=== PATIENT | female | born 1965 | race Caucasian/White ===

== ENCOUNTER 2019-09-09 06:29 | Day surgery (SDC) | payer BC ==
[~2019-09-09 06:29] MED LIST: Lactated Ringers 1,000 ML IV ONE; MEFOXIN 2 GM PREMIX** 2 GM/50 ML ML IV ONE
[2019-09-09] MEDS ORDERED: Lactated Ringers 1,000 ML IV SCH (06:30)
[2019-09-09] MEDS ORDERED: Sensorcaine 0.25% 10 ML ONE (07:13)
[2019-09-09] MEDS ORDERED: Lactated Ringers 1,000 ML IV ONE (07:14)
--- NOTE | 2019-09-09 07:48 | HP ---
DATE OF SURGERY: 09/09/2019 ANTICIPATED PROCEDURE: Laparoscopic cholecystectomy possible open. HISTORY OF PRESENT ILLNESS: The patient has chronic cholecystitis, multiple attacks, right upper quadrant pain. She presents for cholecystectomy. PAST SURGICAL HISTORY: She has had a brachial cleft cyst, bladder tack. PAST MEDICAL HISTORY: ALLERGIES: VICODIN. MEDICATIONS: Metformin. SOCIAL HISTORY: Negative. FAMILY HISTORY: Negative. REVIEW OF SYSTEMS: Diabetes. Celiac disease. PHYSICAL EXAMINATION: VITAL SIGNS: Normal. CHEST: Clear. COR: Regular. ABDOMEN: Satisfactory. IMPRESSION: Depressed gallbladder ejection fraction, dyskinesia and cholecystitis. PLAN: Laparoscopic cholecystectomy.
[2019-09-09] MEDS ORDERED: Versed 2 MG/2 ML Injection ONE (08:11)
[2019-09-09] MEDS ORDERED: DIPRIVAN 200 MG/20 ML IV ONE (08:11)
[2019-09-09] MEDS ORDERED: SUBLIMAZE 250 MCG/5 ML ONE (08:11)
[2019-09-09] MEDS ORDERED: Zemuron 100 MG/10 ML ONE (08:11)
[2019-09-09] MEDS ORDERED: BRIDION 200MG/2ML IV ONE (10:53)
[2019-09-09] MEDS ORDERED: MORPHINE SULFATE 10 MG/ML ONE (11:32)
[2019-09-09 13:17] VITALS: BP 146/87; PULSE 64; O2SAT 98
--- NOTE | 2019-09-09 15:31 | OP ---
SURGERY DATE/TIME: 09/09/2019 1036 PREOPERATIVE DIAGNOSIS: Gallbladder dyskinesia. POSTOPERATIVE DIAGNOSIS: Gallbladder dyskinesia. PROCEDURE: Laparoscopic cholecystectomy. SURGEON: Dr. Bowen. ANESTHESIA: General endotracheal tube. COMPLICATIONS: None. CONDITION: Stable. INDICATIONS: A patient with upper abdominal pain, ultrasound negative, HIDA scan positive. Clinically she certainly has cholecystitis. DESCRIPTION OF PROCEDURE AND FINDINGS: She is taken to surgery. General anesthetic, routine prep and drape. Veress needle inserted. Opening pressure of 1, insufflating pressure 14. Four - 5's. Good visualization. There was quite a bit of scarring of her cystic duct area this was taken down. Cystic duct triply clipped. Cystic artery triply clipped. Gallbladder rolled out of gallbladder fossa. The gallbladder delivered through epigastric port with small amount of widening. Hole closure device used with 0 Vicryl. Field was dry. CO2 exsufflated. Skin closed with 4-0 Vicryl and Steri-Strips. The patient tolerated the procedure satisfactorily.
== END 2019-09-09 13:15 | disposition home or self-care (01) ==
LOC: SDC 06:29
PROVIDERS: ATTEND Surgery
DX: K82.8 Other specified diseases of gallbladder (principal); E11.9 Type 2 diabetes mellitus without complications; Z79.84 Long term (current) use of oral hypoglycemic drugs
CPT/HCPCS: 82962; 88304; J0694; J2250; J2270; J2704; J3010

== ENCOUNTER 2024-03-21 15:15 | Emergency (ER) | payer BC ==
[2024-03-21 16:29] VITALS: TEMP 98.2; O2SAT 99
[2024-03-21] MEDS: XYLOCAINE 1% HCL 20 ML MDV IJ ONE (16:31)
[2024-03-21] MEDS ORDERED: XYLOCAINE 1% HCL 20 ML MDV ONE (16:32)
--- NOTE | 2024-03-21 16:44 | ERPHSYRPT ---
- History of Present Illness Time Seen by Provider: 03/21/24 15:54 Source: patient Exam Limitations: no limitations Patient Subjective Stated Complaint: C/O laceration to top of right foot. States she dropped some glass sauce containers on top of her foot at home about an hour prior to coming into the ER. Triage Nursing Assessment: Patient with a 2cm X 0.3cm laceration to the top of her right foot. She is alert and oriented. Ambulating without difficulties. Physician History: 58-year-old female presented in the ER with complaint of right foot dorsum laceration after she accidentally dropped to sauce bottle which possibly broke and has a laceration prior to arrival. There was bleeding initially but stopped with applying pressure. She is complaining of minimal pain. No difficulty ambulation. No distal foot/toes numbness Allergies/Adverse Reactions: hydrocodone bitartrate [From Vicodin] Allergy (Mild, Verified 03/21/24 16:09) rash, itching Home Medications: Atorvastatin Calcium 10 mg PO HS 09/01/19 [History] Metformin HCl 500 mg [Glucophage 500 MG] 1,000 mg PO BIDWM 09/01/19 [History] Multivitamin [Multivitamins] 1 each PO DAILY 09/09/19 [History] Hx Tetanus, Diphtheria Vaccination/Date Given: (Needs a tetanus) Hx Influenza Vaccination/Date Given: No Hx Pneumococcal Vaccination/Date Given: No Travel Risk - International Travel Have you traveled outside of the country in past 3 weeks: No - Emerging Infectious Disease Are you exhibiting symptoms associated with any current EIDs: No - Review of Systems Constitutional: No Symptoms Respiratory: No Symptoms Cardiac: No Symptoms Abdominal/Gastrointestinal: No Symptoms Musculoskeletal: Injury Skin: Skin Lesions Neurological: No Symptoms Hematologic/Lymphatic: No Symptoms Immunological/Allergic: No Symptoms - Past Medical History Pertinent Past Medical History: Yes Neurological History: No Pertinent History ENT History: No Pertinent History Cardiac History: High Cholesterol Respiratory History: No Pertinent History Endocrine Medical History: Diabetes Type II Musculoskeletal History: No Pertinent History GI Medical History: GERD, Gallbladder Disease, Other History: No Pertinent History Psycho-Social History: No Pertinent History Female Reproductive Disorders: Abnormal Uterine Bleeding - Past Surgical History Past Surgical History: Yes Neuro Surgical History: No Pertinent History Cardiac: No Pertinent History Respiratory: No Pertinent History Gastrointestinal: Exploratory Laparoscopy Genitourinary: No Pertinent History Musculoskeletal: Orthopedic Surgery Female Surgical History: Other Other Surgical History: right knee arthroscopy X 2, bladder tacked, right middle finger tip reatached, brachial plexus of neck removed, Uterine ABLATION - Social History Smoking Status: Never smoker Exposure to second hand smoke: No Drug Use: none Patient Lives Alone: No - Nursing Vital Signs Nursing Vital Signs: Initial Vital Signs Temperature 98.2 F 03/21/24 16:11 Pulse Rate 63 03/21/24 16:11 Respiratory Rate 18 03/21/24 16:11 Blood Pressure 134/75 03/21/24 16:11 O2 Sat by Pulse Oximetry 99 03/21/24 16:11 Pain Scale Pain Intensity 0 - Physical Exam General Appearance: no apparent distress, alert Eye Exam: PERRL/EOMI Neck Exam: normal inspection, full range of motion Respiratory Exam: normal breath sounds, lungs clear Cardiovascular Exam: regular rate/rhythm, normal heart sounds Extremity Exam: other (2.5 cm laceration mid foot dorsum on the medial side with no tenderness around. No swelling. Distal neurovascular intact.) Neurologic Exam: alert, oriented x 3, cooperative Skin Exam: normal color SpO2 Interpretation: normal SpO2: 99 O2 Delivery: Room Air Procedures - Laceration/Wound Repair Right Foot Time of Procedure: 16:25 Wound Location: Right, foot Wound Length (cm): 2.5 Wound's Depth, Shape: superficial, linear Wound Explored: clean Irrigated: Yes Hibiclens Prep: Yes Anesthesia: 1% Lidocaine Volume Anesthetic (ccs): 3 Wound Repaired With: sutures Suture Size/Type: 4-0, ethilon Number of Sutures: 5 Layer Closure?: No Sterile Dressing Applied?: Yes Ordered Tests: Medication Summary Discontinued Medications Generic Name Dose Route Start Last Admin Trade Name Freq PRN Reason Stop Dose Admin Diphtheria/Tetanus/Acell Pertussis 0.5 ml 03/21/24 16:43 03/21/24 17:12 Tdap --Diph,Pertuss(Acell),Tet Vac/Pf 0.5 Ml Vial IM 03/21/24 16:44 0.5 ml .ONCE ONE Administration Diphtheria/Tetanus/Acell Pertussis Confirm 03/21/24 17:11 Tdap --Diph,Pertuss(Acell),Tet Vac/Pf 0.5 Ml Vial Administered 03/21/24 17:12 Dose 0.5 ml IM .STK-MED ONE Lidocaine HCl 5 ml 03/21/24 16:30 03/21/24 16:31 Lidocaine Hcl 1% 20 Ml Mdv 20 Ml Ml IJ 03/21/24 16:31 5 ml STAT ONE Administration Lidocaine HCl Confirm 03/21/24 16:32 Lidocaine Hcl 1% 20 Ml Mdv 20 Ml Ml Administered 03/21/24 16:33 Dose 5 ml .ROUTE .STK-MED ONE - Progress Progress: improved Progress Note: 03/21/24 16:42 58-year-old is evaluated for right foot dorsal laceration after she accidentally dropped a glass bottle which broke on the way down. Patient has no active spurting, minimal oozing. No bony tenderness. Distal neurovascular intact. I offered imaging to rule out fracture/foreign body which patient declined. Laceration is repaired. Tetanus is updated. Recommended Tylenol ibuprofen as needed and avoiding exertional activity and walking with a straight foot without bending. Counseled pt/family regarding: diagnosis, need for follow-up Medical Desision Making - Independent Historian Additional History obtained from: Spouse - Diagnostic Testing Diagnostic test were ordered, analyzed, and reviewed by me: No - Risk of complications The pt has a mod risk of morbidity or mortality based on: Need for minor surgical intervention in patient with know risk factors - Departure Departure Disposition: Home Clinical Impression: Foot laceration Condition: Stable Critical Care Time: No Referrals: ROBERTO CARLOS SIDDIQUI MD [Primary Care Provider] - Follow up with PCP 1 day Instructions: Laceration Repair With Stitches (DC) Additional Instructions: Avoid exertional activities. Walk with a straight foot. Follow-up with primary care for reevaluation. Suture removal in 10 to 14 days. Return to ER for increasing pain swelling redness discharge/fever chills etc.
[2024-03-21] MEDS ORDERED: Adacel Vial IM ONE (17:11)
[2024-03-21] MEDS: Adacel Vial IM ONE (17:12)
[2024-03-21 17:20] VITALS: BP 116/82; PULSE 66; RESP 16
== END 2024-03-21 17:23 | disposition home or self-care (01) ==
LOC: ED 15:15
DX: S91.311A Laceration without foreign body, right foot, initial encounter (principal); W20.8XXA Other cause of strike by thrown, projected or falling object, initial encounter; W25.XXXA Contact with sharp glass, initial encounter; E78.5 Hyperlipidemia, unspecified; E11.9 Type 2 diabetes mellitus without complications; Z79.891 Long term (current) use of opiate analgesic; Z79.899 Other long term (current) drug therapy; Z23 Encounter for immunization
CPT/HCPCS: 12001; 90471; 90715; 99283